=== PATIENT | female | born 1985 | race Caucasian/White ===

== ENCOUNTER 2017-11-30 14:31 | Emergency (ER) | payer OTHER ==
[2017-11-30 15:41] VITALS: BP 125/66
--- NOTE | 2017-11-30 15:53 | UC ---
Abdominal Pain Female HPI - HPI Summary HPI Summary: Pt presents with diarrhea for the last 2 weeks. She tells me that 2 weeks ago she developed loose stools followed by watery unformed diarrhea. Previously her BMs would be two or three times a week. This diarrhea has persisted about 3 or 4 times a day for the last 2 weeks. She is hesitant to eat because within 20 minutes she will have to have a BM and it will be "watery". She has mild lower abdominal pain, but only when she needs to have a BM. She has not taken anything OTC for this. She denies recent illness, travel, change in diet or medications, SOB, chest pain, fever, chills, dysuria, vaginal pain/discharge/ bleeding, blood in stool, nausea, or vomiting. - History of Current Complaint Chief Complaint: UCGI Stated Complaint: DIARRHEA Time Seen by Provider: 11/30/17 15:52 Hx Obtained From: Patient Hx Last Menstrual Period: 2012 Severity Initially: Moderate Severity Currently: None Pain Intensity: 6 Pain Scale Used: 0-10 Numeric Allergies/Adverse Reactions: Allergies Allergy/AdvReac Type Severity Reaction Status Date / Time MS Azithromycin Allergy Severe Hives Verified 11/30/17 15:41 [From Zithromax] MS Cephalexin [From Keflex] Allergy Severe Swelling Verified 11/30/17 15:41 Of Face,Lips,& Throat PMH/Surg Hx/FS Hx/Imm Hx Previously Healthy: Yes Respiratory History: Asthma - Surgical History Surgical History: Yes Surgery Procedure, Year, and Place: 2014 HYSTERECTOMY - Family History Known Family History: Negative: Hypertension Family History: no cardio vascular issues in family lineage - Social History Occupation: Employed Full-time Alcohol Use: Rare Substance Use Type: None Smoking Status (MU): Heavy Every Day Tobacco Smoker Type: Cigarettes Amount Used/How Often: 1/2 PPD Length of Time of Smoking/Using Tobacco: 15+ YEARS Review of Systems Constitutional: Negative Skin: Negative Respiratory: Negative Cardiovascular: Negative Gastrointestinal: Diarrhea Genitourinary: Negative Musculoskeletal: Negative Neurological: Negative Psychological: Negative All Other Systems Reviewed And Are Negative: Yes Physical Exam Triage Information Reviewed: Yes Appearance: Well-Appearing, No Pain Distress, Well-Nourished Vital Signs: Initial Vital Signs Temp 98 F 11/30/17 15:36 Pulse 73 11/30/17 15:36 Resp 16 11/30/17 15:36 BP 125/66 11/30/17 15:36 Pulse Ox 100 11/30/17 15:36 Vital Signs Reviewed: Yes Neck: Positive: Supple, Nontender, No Lymphadenopathy Respiratory: Positive: Chest non-tender, Lungs clear, Normal breath sounds, No respiratory distress, No accessory muscle use Cardiovascular: Positive: RRR, No Murmur, Pulses Normal Abdomen Description: Positive: Nontender, No Organomegaly, Soft. Negative: CVA Tenderness (R), CVA Tenderness (L), Distended, Guarding, Hernia @, McBurney's Point Tenderness, Peritoneal Signs, Pulsatile Mass Bowel Sounds: Positive: Present. Negative: Hyperactive Neurological: Positive: Alert Psychological: Positive: Age Appropriate Behavior Skin: Negative: rashes, significant lesion(s) - Additional Comments Pt refused rectal exam Abd Pain Female Course/Dx - Course Course Of Treatment: I had a discussion with her that to appropriatly evaluate her diarrhea, a CT with contrast should be performed and she should seek evaluation at the ED - she did not want to do this and asked to try other treatment. Given this I will send for stool culture, c diff, and h pylori and try her with Cipro and Flagyl to cover for an infectious process. She was agreeable with this plan and agreed to go to ED if symptoms worsen. - Differential Dx/Diagnosis Provider Diagnoses: Diarrhea Discharge - Discharge Plan Condition: Stable Disposition: HOME Prescriptions: Ciprofloxacin TAB* [Cipro 500 MG TAB*] 500 mg PO BID #14 tab metroNIDAZOLE [Flagyl 500 MG TAB] 500 mg PO TID #21 tab Patient Education Materials: Acute Diarrhea (ED) Referrals: Flaquito Springer MD [Primary Care Provider] - Additional Instructions: If you develop a fever, shortness of breath, chest pain, vomiting, increasing pain, new or worsening symptoms - please call your PCP or go to the ED.
[2017-11-30 20:23] LABS: ABS Basophils 0.1 10^3/ul (0-0.2); ABS Eosinophils 0.2 10^3/ul (0-0.6); ABS Lymphocytes 2.5 10^3/ul (1.0-4.8); ABS Monocytes 0.6 10^3/ul (0-0.8); ABS Neutrophils 6.2 10^3/ul (1.5-7.7); ABS Nucleated RBC 0 10^3/ul; Eosinophil % 1.8 % (0-6); Hematocrit 42 % (35-47); Hemoglobin 14.4 g/dl (12.0-16.0); Lymphocyte % 26.5 % (25-47); Mean Corpuscular HGB Conc 34 g/dl (31-36); Mean Corpuscular Hemoglobin 30 pg (27-31); Mean Corpuscular Volume 87 fL (80-97); Mean Platelet Volume 8 um3 (7.4-10.4); Nucleated Red Blood Cells % 0.2; Platelet Count 312 10^3/ul (150-450); Red Blood Count 4.88 10^6/ul (4.0-5.4); Red Cell Distribution Width 13 % (10.5-15); White Blood Count 9.6 10^3/ul (3.5-10.8)
[2017-11-30 20:43] LABS: EGFR Non-African American 89.6 (>60)
== END 2017-11-30 16:40 | disposition home or self-care (01) ==
LOC: UCEAST 14:31
DX: R19.7 Diarrhea, unspecified (principal); J45.909 Unspecified asthma, uncomplicated; Z90.710 Acquired absence of both cervix and uterus; Z88.1 Allergy status to other antibiotic agents; F17.210 Nicotine dependence, cigarettes, uncomplicated
CPT/HCPCS: 36415; 80053; 85025; 99212; G0463

== ENCOUNTER 2017-12-17 13:49 | Emergency (ER) | payer SELFPAY ==
[2017-12-17 14:26] VITALS: BP 101/59
--- NOTE | 2017-12-17 14:35 | UC ---
Respiratory Complaint HPI - History of Current Complaint Chief Complaint: UCRespiratory Stated Complaint: RESP ISSUE Time Seen by Provider: 12/17/17 14:29 Hx Obtained From: Patient Hx Last Menstrual Period: 2012 ?: No - hysterectomy Onset/Duration: Gradual Onset - started 7-10 days ago with nasal congestion and post nasal drip. now coughing and today got worse Timing: Constant Severity Initially: Mild Severity Currently: Moderate Pain Intensity: 6 Character: Cough: Productive Aggravating Factors: Exertion Associated Signs And Symptoms: Positive: Nasal Congestion - Allergies/Home Medications Allergies/Adverse Reactions: Allergies Allergy/AdvReac Type Severity Reaction Status Date / Time azithromycin Allergy Hives Verified 12/17/17 14:26 cephalexin Allergy Swelling Verified 12/17/17 14:26 Of Face,Lips,& Throat Home Medications: Home Medications SUMAtriptan TAB* [Imitrex TAB*] 100 mg PO SEE INSTRUCTIONS PRN 12/17/17 [ History Confirmed 12/17/17] PMH/Surg Hx/FS Hx/Imm Hx Previously Healthy: Yes Respiratory History: Asthma Psychological History: Other - opiate abuse Other Psychological History: drug use - Surgical History Surgical History: Yes Surgery Procedure, Year, and Place: 2014 HYSTERECTOMY - Family History Known Family History: Negative: Hypertension Family History: no cardio vascular issues in family lineage - Social History Occupation: Employed Full-time Lives: With Family Alcohol Use: Rare Substance Use Type: None Smoking Status (MU): Heavy Every Day Tobacco Smoker Type: Cigarettes Amount Used/How Often: 1 PPD Length of Time of Smoking/Using Tobacco: 15+ YEARS Cessation Counseling: Patient Advised to Stop Review of Systems Constitutional: Fatigue Skin: Negative Respiratory: Cough Cardiovascular: Negative Gastrointestinal: Negative Neurological: Negative Psychological: Negative Is Patient Immunocompromised?: No All Other Systems Reviewed And Are Negative: Yes Physical Exam Triage Information Reviewed: Yes Appearance: Well-Appearing, No Pain Distress, Well-Nourished Vital Signs: Initial Vital Signs Temp 98.0 F 12/17/17 14:22 Pulse 74 12/17/17 14:22 Resp 16 12/17/17 14:22 BP 101/59 12/17/17 14:22 Pulse Ox 98 12/17/17 14:22 Vital Signs Reviewed: Yes Eyes: Positive: Conjunctiva Clear ENT: Positive: Pharynx normal, Nasal congestion, TMs normal Respiratory: Positive: Rhonchi. Negative: Respiratory distress Cardiovascular Exam: Normal Cardiovascular: Positive: RRR Neurological Exam: Normal Psychological Exam: Normal Skin Exam: Normal UC Diagnostic Evaluation - Laboratory O2 Sat by Pulse Oximetry: 98 Respiratory Course/Dx - Differential Dx/Diagnosis Differential Diagnosis/HQI/PQRI: Bronchitis, Influenza, Lower Resp Infection, Sinusitis Provider Diagnoses: bronchitis Discharge - Discharge Plan Condition: Stable Disposition: HOME Prescriptions: Ciprofloxacin TAB* [Cipro 500 MG TAB*] 500 mg PO BID #20 tab Patient Education Materials: Acute Bronchitis (ED) Referrals: Flaquito Springer MD [Primary Care Provider] - 3 Days (if no better) Additional Instructions: rest and drink more fluids take antibiotic as prescribed ok to use mucinex for cough
== END 2017-12-17 14:47 | disposition home or self-care (01) ==
LOC: UCEAST 13:49
DX: J40 Bronchitis, not specified as acute or chronic (principal); F17.210 Nicotine dependence, cigarettes, uncomplicated; J45.909 Unspecified asthma, uncomplicated
CPT/HCPCS: 99212; G0463

== ENCOUNTER 2017-12-23 10:10 | Emergency (ER) | payer SELFPAY ==
--- NOTE | 2017-12-23 10:29 | UC ---
FLU HPI - HPI Summary HPI Summary: Pt presents with continued cough, but now with sinus symptoms and sore throat. She was seen on 12/17 for bronchitis and given cipro, which she doesn't feel is helping. She is also nauseous and has vomited two to three times a day for the last 3 days. She has been around co-workers with similar symptoms and many diagnosed with the flu. - History of Current Complaint Chief Complaint: UCGeneralIllness Stated Complaint: SORE THROAT, WEAK Time Seen by Provider: 12/23/17 10:29 Hx Obtained From: Patient Hx Last Menstrual Period: 2012 Onset/Duration: Gradual Onset Severity Currently: Moderate Severity Initially: Moderate Pain Intensity: 6 Pain Scale Used: 0-10 Numeric - Allergy/Home Medications Allergies/Adverse Reactions: Allergies Allergy/AdvReac Type Severity Reaction Status Date / Time azithromycin Allergy Hives Verified 12/23/17 10:19 cephalexin Allergy Swelling Verified 12/23/17 10:19 Of Face,Lips,& Throat Home Medications: Home Medications Ibuprofen TAB* [Motrin TAB* 800 MG] 800 mg PO ONCE 12/23/17 [History Confirmed 12/23/17] PMH/Surg Hx/FS Hx/Imm Hx Previously Healthy: Yes Respiratory History: Asthma - Surgical History Surgical History: Yes Surgery Procedure, Year, and Place: 2013 HYSTERECTOMY - Family History Known Family History: Negative: Hypertension Family History: no cardio vascular issues in family lineage - Social History Occupation: Employed Full-time Lives: With Family Alcohol Use: Rare Substance Use Type: None Smoking Status (MU): Heavy Every Day Tobacco Smoker Type: Cigarettes Amount Used/How Often: 1 PPD Length of Time of Smoking/Using Tobacco: 15+ YEARS Review of Systems Constitutional: Fatigue, Other - Body aches Skin: Negative Eyes: Negative ENT: Nasal Discharge, Sinus Congestion, Sinus Pain/Tenderness Respiratory: Cough Cardiovascular: Negative Gastrointestinal: Vomiting, Nausea Neurovascular: Negative Musculoskeletal: Negative Neurological: Negative Psychological: Negative All Other Systems Reviewed And Are Negative: Yes Physical Exam - Summary Physical Exam Summary: GENERAL: Mildly ill appearing. NAD. WDWN. No pain distress. SKIN: No rashes, sores, ulcers, masses, lesions. HEENT: Head: AT/NC Eyes: Conjunctiva clear without inflammation or discharge. Ears: Hearing grossly normal. TMs intact, no bulging, erythema, or edema. Nose: Nasal mucosa pink and moist. NTTP maxillary and frontal sinus. Throat: Posterior oropharynx without exudates and erythema. 2+ tonsillar enlargement. Uvula midline. NECK: Supple. Nontender. No lymphadenopathy. CHEST: Moderate wheezing throughout. No r/r. No accessory muscle use. Breathing comfortably and in no distress. ABDOMEN: NTTP. No rebound, guarding, or distention. Bowel sounds present. CV: RRR. Without m/r/g. Pulses intact. Brisk cap refill. NEURO: Alert. CN II-XII grossly intact. PSYCH: Age appropriate behavior. Triage Information Reviewed: Yes Vital Signs: Initial Vital Signs Temp 98.3 F 12/23/17 10:21 Pulse 74 12/23/17 10:21 Resp 18 12/23/17 10:21 BP 108/66 12/23/17 10:21 Pulse Ox 98 12/23/17 10:21 Re-Evaluation - Re-Evaluation First Eval Re-Evaluation Time: 11:26 Change: Improved Comment: Pt reports significant improvement in breathing. Lung sounds markedly improved with mild scattered wheezes. Flu Course/Dx - Course Course Of Treatment: CXR - IMPRESSION: NO ACTIVE CARDIOPULMONARY DISEASE. POC flu A positive. Duoneb - great relief. Lung sounds improved. Reglan given in clinic today with good relief of nausea. - Differential Dx/Diagnosis Provider Diagnoses: Bronchitis. Influenza A Discharge - Discharge Plan Condition: Stable Disposition: HOME Patient Education Materials: Influenza (DC), Acute Bronchitis (ED) Forms: *Work Release Referrals: Flaquito Springer MD [Primary Care Provider] - Additional Instructions: If you develop a fever, shortness of breath, chest pain, new or worsening symptoms - please call your PCP or go to the ED.
[2017-12-23] MEDS ORDERED: Albuterol/Ipratropium NEB.SOL* Albuterol 2.5 MG/Ipratropium 0.5 MG 3 ML INH ONE (10:33)
[2017-12-23] MEDS ORDERED: Metoclopramide TAB* 10 MG PO ONE (10:33)
--- NOTE | 2017-12-23 11:06 | RAD ---
HISTORY: Cough COMPARISONS: None VIEWS: 4: Frontal dual-energy and lateral views of the chest. FINDINGS: CARDIOMEDIASTINAL SILHOUETTE: The cardiomediastinal silhouette is normal. MOUSTAPHA: The moustapha are normal. PLEURA: The costophrenic angles are sharp. No pleural abnormalities are noted. LUNG PARENCHYMA: The lungs are clear. ABDOMEN: The upper abdomen is clear. There is no subphrenic gas. BONES AND SOFT TISSUES: No bone or soft tissue abnormalities are noted. OTHER: None. IMPRESSION: NO ACTIVE CARDIOPULMONARY DISEASE.
[2017-12-23 11:35] VITALS: BP 111/78
== END 2017-12-23 11:30 | disposition home or self-care (01) ==
LOC: UCEAST 10:10
DX: J10.1 Influenza due to other identified influenza virus with other respiratory manifestations (principal); J45.909 Unspecified asthma, uncomplicated; R11.2 Nausea with vomiting, unspecified; Z88.1 Allergy status to other antibiotic agents; F17.210 Nicotine dependence, cigarettes, uncomplicated
CPT/HCPCS: 71046; 87502; 99212; A9270-GY; G0463

== ENCOUNTER 2018-03-06 09:24 | Emergency (ER) | payer BC ==
[2018-03-06 09:36] VITALS: BP 114/69
--- NOTE | 2018-03-06 09:45 | UC ---
Throat Pain/Nasal Vishal HPI - HPI Summary HPI Summary: 32 yo female presents with sinus pain/pressure/congestion and post nasal drip for the last 5 days. Has been taking mucinex and an OTC cold and flu medication with no relief. Denies fever, chills, SOB, chest pain. Still smoking daily. - History of Current Complaint Chief Complaint: UCGeneralIllness Stated Complaint: SINUS COMPLAINT Time Seen by Provider: 03/06/18 09:44 Hx Obtained From: Patient Hx Last Menstrual Period: 2012 Onset/Duration: Gradual Onset Severity: Moderate Pain Intensity: 6 Pain Scale Used: 0-10 Numeric - Allergies/Home Medications Allergies/Adverse Reactions: Allergies Allergy/AdvReac Type Severity Reaction Status Date / Time azithromycin Allergy Hives Verified 03/06/18 09:32 cephalexin Allergy Swelling Verified 03/06/18 09:32 Of Face,Lips,& Throat PMH/Surg Hx/FS Hx/Imm Hx - Additional Past Medical History Additional PMH: None Previously Healthy: Yes - Surgical History Surgical History: Yes Surgery Procedure, Year, and Place: 2013 HYSTERECTOMY - Family History Known Family History: Negative: Hypertension Family History: no cardio vascular issues in family lineage - Social History Lives: With Family Alcohol Use: Rare Substance Use Type: Prescribed - On suboxone Smoking Status (MU): Heavy Every Day Tobacco Smoker Type: Cigarettes Amount Used/How Often: 1 PPD Length of Time of Smoking/Using Tobacco: 15+ YEARS Household Exposure Type: Cigarettes Review of Systems Constitutional: Negative Skin: Negative Eyes: Negative ENT: Nasal Discharge, Sinus Congestion, Sinus Pain/Tenderness Respiratory: Cough Cardiovascular: Negative Gastrointestinal: Negative Neurovascular: Negative Neurological: Negative Psychological: Negative All Other Systems Reviewed And Are Negative: Yes Physical Exam - Summary Physical Exam Summary: GENERAL: NAD. WDWN. No pain distress. SKIN: No rashes, sores, lesions, or open wounds. HEENT: Head: AT/NC Eyes: EOM intact. Conjunctiva clear without inflammation or discharge. Ears: Hearing grossly normal. TMs intact, no bulging, erythema, or edema. Nose: Nasal mucosa mildly swollen and erythematous with yellow/ clear discharge. TTP maxillary and frontal sinus. Throat: Posterior oropharynx without exudates, erythema, or tonsillar enlargement. Uvula midline. NECK: Supple. Nontender. No lymphadenopathy. CHEST: CTAB. No r/r/w. No accessory muscle use. Breathing comfortably and in no distress. CV: RRR. Without m/r/g. Pulses intact. Brisk cap refill. NEURO: Alert. CN II-XII grossly intact. PSYCH: Age appropriate behavior. Triage Information Reviewed: Yes Vital Signs: Initial Vital Signs Temp 98.1 F 03/06/18 09:33 Pulse 85 03/06/18 09:33 Resp 16 03/06/18 09:33 BP 114/69 03/06/18 09:33 Pulse Ox 97 03/06/18 09:33 Throat Pain/Nasal Course/Dx - Course Course Of Treatment: Sinusitis - Differential Dx/Diagnosis Provider Diagnoses: Sinusitis Discharge - Sign-Out/Discharge Documenting (check all that apply): Discharge/Admit/Transfer - Discharge Plan Condition: Stable Disposition: HOME Prescriptions: Amoxicillin PO (*) [Amoxicillin 500 MG CAP*] 500 mg PO Q12H #20 cap Fluticasone NASAL SPRAY 50MCG* [Flonase NASAL SPRAY 50MCG*] 2 spray BOTH NARES DAILY #1 btl Patient Education Materials: Sinusitis (ED) Referrals: Flaquito Springer MD [Primary Care Provider] - Additional Instructions: If you develop a fever, shortness of breath, chest pain, new or worsening symptoms - please call your PCP or go to the ED. - Billing Disposition and Condition Condition: STABLE Disposition: HOME
== END 2018-03-06 09:55 | disposition home or self-care (01) ==
LOC: UCEAST 09:24
DX: J32.9 Chronic sinusitis, unspecified (principal); F17.210 Nicotine dependence, cigarettes, uncomplicated; Z88.1 Allergy status to other antibiotic agents
CPT/HCPCS: 99212; G0463

== ENCOUNTER 2018-10-03 08:43 | Emergency (ER) | payer BC ==
[2018-10-03] MEDS ORDERED: NS 0.9% 1000 ML* 1,000 ML IV ONE (09:04)
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
[2018-10-03 09:28] LABS: ABS Basophils 0.1 10^3/ul (0-0.2); ABS Eosinophils 0.1 10^3/ul (0-0.6); ABS Lymphocytes 1.3 10^3/ul (1.0-4.8); ABS Monocytes 0.6 10^3/ul (0-0.8); ABS Neutrophils 6.3 10^3/ul (1.5-7.7); ABS Nucleated RBC 0 10^3/ul; Eosinophil % 1.5 %; Hematocrit 41 % (35-47); Lymphocyte % 15.7 %; Mean Corpuscular HGB Conc 34 g/dl (31-36); Mean Corpuscular Hemoglobin 30 pg (27-31); Mean Corpuscular Volume 88 fL (80-97); Mean Platelet Volume 7.4 fL (7.4-10.4); Nucleated Red Blood Cells % 0.1; Platelet Count 297 10^3/ul (150-450); Red Blood Count 4.68 10^6/ul (4.00-5.40); Red Cell Distribution Width 13 % (10.5-15); White Blood Count 8.4 10^3/ul (3.5-10.8)
[2018-10-03] MEDS ORDERED: Ketorolac INJ* 30 MG/ML 1 ML VIAL IV PUSH ONE (09:35)
--- NOTE | 2018-10-03 09:37 | ED ---
GI/ HPI - HPI Summary HPI Summary: Patient is a 33 y/o F presenting to ED with complaints of left flank pain onsetting two days ago. She went to see PCP yesterday, x-ray was done, stool was noted to be present, there were concerns for possible kidney stone. no h/o stones. She was prescribed a muscle relaxant which she has been taking with no relief in Sx - took 2 doses. Pt took Motrin x 1 and APAP x 1 yesterday. None since. Pain has worsened since onset. Pain is intermittent, patient notes that staying still is comfortable with pain. It is noted that movement, deep breaths aggravate pain. She denies nausea, fever, chills, dysuria, laol blood in urine , pain, weakness, numbness in legs, no possibility of . Patient is on suboxone since 2007, reports one relapse since, has been clean 6.5 years at this point. She denies any other home medications. Patient smokes daily, notes rare alc usage, no substance usage. She reports a fall from standing position a few weeks ago but notes no pain after the fall. Patient has been taking ibuprofen/tylenol for pain, last ibuprofen was yesterday morning, Tylenol 1600 yesterday. Patient works in an office. On triage, pain is rated 4/10. Home medications and allergies are reviewed. - History of Current Complaint Chief Complaint: EDFlankPain Time Seen by Provider: 10/03/18 08:55 Stated Complaint: LEFT FLANK PAIN Hx Obtained From: Patient Hx Last Menstrual Period: 2012 Onset/Duration: Started Days Ago - two, Still Present, Worse Since Timing: Intermittent Severity: Mild Current Severity: Moderate - 4/10 Pain Intensity: 4 Location of Pain: Flank - left Associated Signs and Symptoms: Positive: Flank Pain - left, Other: - no pain, numbness, weakness in legs. Negative: Nausea, Fever, Hematuria, Dysuria, Chills Aggravating Factor(s): Movement, Deep Breaths Alleviating Factor(s): Position - staying still is comfortable - Allergy/Home Medications Allergies/Adverse Reactions: Allergies Allergy/AdvReac Type Severity Reaction Status Date / Time azithromycin Allergy Hives Verified 10/03/18 08:47 cephalexin Allergy Swelling Verified 10/03/18 08:47 Of Face,Lips,& Throat PMH/Surg Hx/FS Hx/Imm Hx Previously Healthy: Yes Endocrine/Hematology History: Denies: Hx Diabetes, Hx Thyroid Disease Cardiovascular History: Denies: Hx Hypertension Respiratory History: Reports: Hx Asthma - Inhaler PRN Denies: Hx Chronic Obstructive Pulmonary Disease (COPD) GI History: Denies: Hx Ulcer Psychiatric History: Reports: Hx Substance Abuse - sober x 6 years - Cancer History Cancer Type, Location and Year: CERVICAL CA - Surgical History Surgery Procedure, Year, and Place: 2014 HYSTERECTOMY Infectious Disease History: No Infectious Disease History: Reports: Hx of Known/Suspected MRSA Denies: Hx Hepatitis, Hx Human Immunodeficiency Virus (HIV), Traveled Outside the [place] in Last 30 Days - Family History Known Family History: Negative: Hypertension Family History: no cardio vascular issues in family lineage - Social History Alcohol Use: Rare Substance Use Type: Reports: None Smoking Status (MU): Heavy Every Day Tobacco Smoker Type: Cigarettes Amount Used/How Often: 1 PPD Length of Time of Smoking/Using Tobacco: 15+ YEARS Review of Systems Negative: Fever, Chills Negative: Nausea Positive: flank pain - left . Negative: dysuria, hematuria Neurological: Other - NEGATIVE - LEG PAIN Negative: Weakness - LEGS, Numbness - LEGS All Other Systems Reviewed And Are Negative: Yes Physical Exam - Summary Physical Exam Summary: Vital Signs Reviewed: Yes A+Ox3, mild discomfort, worse with movement. Eyes: Conjunctiva Clear, JUDITH. EOM intact and full ENT: Hearing grossly normal TM x 2 clear, mmoist, uvula midline, no exudate, no erythema Neck: Positive: Supple Respiratory: Positive: No respiratory distress, No accessory muscle use + CTA throughout no w/r Cardiovascular: RRR nl s1, s2 no m/r CBT <2 sec abd soft + BS nt/nd no guarding, no distension Musculoskeletal Exam: No spinous proces pain. No pain c/t/l/s + TTP left paraspinal mid thoracic. Pain increased with abductioin shoulders against resistance. Pain increased with direct palpation, movement Pain focal Neurological: Positive: Alert, + sensation throughout 5/5 grasp + thumb up, a ok, finger cross Psychological: Positive: Normal Response To Family Skin: Positive: no rash, no ecchymosis Triage Information Reviewed: Yes Vital Signs On Initial Exam: Initial Vitals Temp Pulse Resp BP Pulse Ox 98.7 F 73 18 132/86 98 10/03/18 08:44 10/03/18 08:44 10/03/18 08:44 10/03/18 08:44 10/03/18 08:44 Vital Signs Reviewed: Yes Diagnostics - Vital Signs Vital Signs Temp Pulse Resp BP Pulse Ox 10/03/18 08:44 98.7 F 73 18 132/86 98 - Laboratory Lab Results: Lab Results 10/03/18 Range/Units 09:11 WBC 8.4 (3.5-10.8) 10^3/ul RBC 4.68 (4.00-5.40) 10^6/ul Hgb 14.0 (12.0-16.0) g/dl Hct 41 (35-47) % MCV 88 (80-97) fL MCH 30 (27-31) pg MCHC 34 (31-36) g/dl RDW 13 (10.5-15) % Plt Count 297 (150-450) 10^3/ul MPV 7.4 (7.4-10.4) fL Neut % (Auto) 74.6 % Lymph % (Auto) 15.7 % [place] % (Auto) 7.5 % Eos % (Auto) 1.5 % Baso % (Auto) 0.7 % Absolute Neuts (auto) 6.3 (1.5-7.7) 10^3/ul Absolute Lymphs (auto) 1.3 (1.0-4.8) 10^3/ul Absolute Monos (auto) 0.6 (0-0.8) 10^3/ul Absolute Eos (auto) 0.1 (0-0.6) 10^3/ul Absolute Basos (auto) 0.1 (0-0.2) 10^3/ul Absolute Nucleated RBC 0 10^3/ul Nucleated RBC % 0.1 Result Diagrams: 10/03/18 09:11 10/03/18 09:11 Lab Statement: Any lab studies that have been ordered have been reviewed, and results considered in the medical decision making process. - Radiology CXR Radiology Interpretation Completed By: Radiologist Summary of Radiographic Findings: IMPRESSION: NO ACTIVE CARDIOPULMONARY DISEASE. THIS REPORT WAS REVIEWED BY ED PHYSICIAN. - Ultrasound No standard instances Ultrasound Interpretation Completed By: Radiologist Summary of Ultrasound Findings: RENAL US IMPRESSION: No hydronephrosis is noted in either kidney. THIS REPORT WAS REVIEWED BY ED PHYSICIAN. Re-Evaluation - Re-Evaluation First Eval Re-Evaluation Time: 10:26 Comment: Pain improved - "my whole body isn't tight" Discussed results of labs and US with patient. She will be discharged to home after UA results. If urine and CXR are fine, patient will be discharged to home. She is agreeable with this. Care for muscle spasms was discussed. Second Eval Re-Evaluation Time: 10:55 Comment: Discusses UA and CXR results, patient to be discharged. GIGU Course/Dx - Course Course Of Treatment: Patient presents with 24 hours H medical left para spinal thoracic pain. Patient states she was seen in her PCP yesterday and inflammation kidney stone. Patient was prescribed a muscle relaxant with little relief. Patient states pain is worse when she takes a deep breath. Pain is worse with movement. Patient states that time pain gets so bad, spasm- like, she has to hold really still for it to pass. No nausea vomiting. No urinary symptoms. Patient states she is not and she status post surgery for cervical cancer. Patient took 1 dose of Tylenol 1 dose of Motrin yesterday. No other analgesia taken within the muscle relaxer. No heat applied. On exam pain is reproducible with range of motion exercises and direct palpation of the left upper back. Low suspicion for renal colic and presentation. However, patient states she was told she blood in her urine yesterday. We'll check a chest x-ray, we'll check renal ultrasound. We'll check a CBC and chemistry. Patient is since in sobriety from opiates so will just use Toradol and Tylenol for pain. Heat. Stretching. Patient states agreement and comfortable with plan. We'll close reassess. - Diagnoses Provider Diagnoses: Back pain, Muscle spasm Discharge - Sign-Out/Discharge Documenting (check all that apply): Patient Departure - DISCHARGE - Discharge Plan Condition: Stable Disposition: HOME Patient Education Materials: Muscle Spasm (ED), Back Pain (ED) Forms: *Gen. Provider Communication, *Work Release Referrals: Flaquito Springer MD [Primary Care Provider] - Additional Instructions: - Okay to alternate Tylenol (acetaminophen) 975mg and ibuprofen(Motrin, Advil) 600mg every 3 hours as needed for pain. Take with food. Do NOT take for more than 4-5 days. - Take muscle relaxer as prescribed -Apply moist heat to your back for 20 minutes at a time, 4-5 times a day. Once your muscles are warm, slow gentle stretching exercises are important - When sleeping, place a pillow under your knees to help relieve pressure of your back. If you are on your side, place a pillow between your knees. -Contact your doctor today to arrange a follow-up appointment next week. - If you pain in uncontrolled, you develop numbness, weakness or new or symptoms in your leg it is recommended you return to the emergency department or contact your primary doctor - Billing Disposition and Condition Condition: STABLE Disposition: Home - Attestation Statements Document Initiated by Kelley: Yes Documenting Scribe: DAVIDE PALMER Provider For Whom Kelley is Documenting (Include Credential): KERRY LAY MD Scribe Attestation: DAVIDE Marinelli , scribed for KERRY LAY MD on 10/03/18 at 1058. Scribe Documentation Reviewed: Yes Provider Attestation: The documentation as recorded by the DAVIDE mancia accurately reflects the service I personally performed and the decisions made by me, KERRY LAY MD Status of Scribe Document: Viewed
[2018-10-03 09:44] LABS: Anion Gap 7 mmol/L (2-11); Blood Urea Nitrogen 12 mg/dL (6-24); CO2 Carbon Dioxide 24 mmol/L (22-32); Calcium 9.2 mg/dL (8.6-10.3); Chloride 106 mmol/L (101-111); Glucose 117 mg/dL (70-100); Magnesium 1.8 mg/dL (1.9-2.7); Sodium 137 mmol/L (135-145)
[2018-10-03 09:51] LABS: HCG Pregnancy < 0.60 mIU/mL
[2018-10-03] MEDS ORDERED: NS 0.9% 1000 ML* 1,000 ML IV SCH (10:00)
[2018-10-03] MEDS ORDERED: Acetaminophen TAB* 325 MG PO ONE (10:09)
[2018-10-03 10:49] LABS: Urine Appearance Cloudy; Urine Bacteria Absent (Absent); Urine Bilirubin Negative (Negative); Urine Blood 1+ (Negative); Urine Color Yellow; Urine Glucose Negative (Negative); Urine Ketones Negative (Negative); Urine Nitrite Negative (Negative); Urine Protein Negative (Negative); Urine Red Blood Cell Trace(0-2/hpf) (Absent); Urine Specific Gravity 1.023 (1.010-1.030); Urine Urobilinogen Negative (Negative); Urine White Blood Cell Trace(0-5/hpf) (Absent)
[2018-10-03 11:22] VITALS: BP 108/56
== END 2018-10-03 11:10 | disposition home or self-care (01) ==
LOC: ED 08:43
DX: M54.9 Dorsalgia, unspecified (principal); M62.830 Muscle spasm of back; J45.909 Unspecified asthma, uncomplicated; Z88.1 Allergy status to other antibiotic agents; F17.210 Nicotine dependence, cigarettes, uncomplicated
CPT/HCPCS: 36415; 71046; 76775; 80048; 81003; 81015; 83735; 84702; 85025; 87086; 96374; 99282; J1885